=== PATIENT | male | born 1945 | race Caucasian/White ===

== ENCOUNTER → 2018-06-14 | Outpatient (CLI) | payer OTHER, BC ==
[~2018-06-14] MED LIST: ADULT LOW DOSE81 MG PO; ALTACE5 M1 PO; CARVEDILOL25 MG PO; KEFLEX500 MG PO; SIMVASTATIN20 MG PO; SPIRONOLACTONE25 M1 PO
[2018-06-14 14:38] LABS: HEMATOCRIT 31.8 % (42.0-52.0); HEMOGLOBIN 10.8 gm/dL (14.0-18.0); MCH 31.8 pg (26.0-34.0); MCHC 33.9 g/dL (28.0-37.0); MCV 93.6 fL (80.0-100.0); RBC 3.4 mil/uL (4.50-6.00); RDW 14.7 % (10.5-14.5); WBC 4.3 thou/uL (4.0-11.0)
[2018-06-14 14:52] LABS: CALCIUM 8.5 mg/dL (8.5-10.1); CREATININE 2.5 mg/dL (0.7-1.3); POTASSIUM 4.5 mmol/L (3.5-5.1)
[2018-06-14 14:54] LABS: INR 1.3; PROTIME 13.9 Seconds (9.3-11.4)
[2018-06-14 14:58] LABS: ALBUMIN 2.5 g/dL (3.4-5.0); TOTAL BILIRUBIN 1.5 mg/dL (<0.1-1.0); TOTAL PROTEIN 6.4 g/dL (6.4-8.2)
[2018-06-14 16:21] LABS: % SATURATION 43 % (20-39); IRON 83 ug/dL (65-175); TIBC 195 ug/dL (250-450)
[2018-06-15 15:11] LABS: CERULOPLASMIN 23.2 mg/dL (16.0-31.0)
[2018-06-16 02:07] LABS: HAV IgM AB (ANTI-HAV IgM) Negative (Negative); HEPATITIS B SURFACE AG Negative (Negative); HEPATITIS C VIRUS AB 0.1 (0.0-0.9)
[2018-06-17 14:10] LABS: MITOCHONDRIAL ANTIBODY <20.0 Units (0.0-20.0); SMOOTH MUSCLE ANTIBODY 22 Units (0-19)
== END | disposition home or self-care (01) ==
LOC: GI 12:17
PROVIDERS: Anesthesiology; Internal Medicine Gastroenterology
DX: I85.10 Secondary esophageal varices without bleeding (principal); K31.89 Other diseases of stomach and duodenum; K74.60 Unspecified cirrhosis of liver; K76.6 Portal hypertension; I12.9 Hypertensive chronic kidney disease with stage 1 through stage 4 chronic kidney disease, or unspecified chronic kidney disease; E11.22 Type 2 diabetes mellitus with diabetic chronic kidney disease; N18.9 Chronic kidney disease, unspecified; I25.2 Old myocardial infarction; I25.10 Atherosclerotic heart disease of native coronary artery without angina pectoris; E78.5 Hyperlipidemia, unspecified; Z87.891 Personal history of nicotine dependence; E66.09 Other obesity due to excess calories; Z79.01 Long term (current) use of anticoagulants; Z98.890 Other specified postprocedural states; Z95.0 Presence of cardiac pacemaker; Z90.49 Acquired absence of other specified parts of digestive tract; Z79.899 Other long term (current) drug therapy
CPT/HCPCS: 62110; 62900

== ENCOUNTER → 2018-06-17 | Outpatient (CLI) | payer OTHER, BC ==
[2018-06-17 10:55] LABS: CLARITY CLEAR; COLOR YELLOW; SOURCE ABDOMINAL FLUID; TOTAL VOLUME 60 mL
[2018-06-17 11:10] LABS: BF NUCLEATED CELLS 215; BF RBC 243
[2018-06-17 11:50] LABS: BF MACROPHAGE 23; BF NEUTROPHILS 5
[2018-06-18 09:10] LABS: BODY FLUID ALBUMIN 1.1 g/dL (()); BODY FLUID AMYLASE 23 U/L (()); BODY FLUID GLUCOSE 126 mg/dL (()); BODY FLUID LDH 112 IU/L (()); BODY FLUID PROTEIN 2.3 g/dL (())
[2018-06-21 09:28] LABS: SOURCE ABDOMINAL
--- NOTE | 2018-06-22 11:09 | PATH ---
[facility] [address] [place] [address] PATHOLOGY RPT PROCEDURE Name: DESEAN CAMARA JR Room #: [facility].#: [id number] ������������������ Admission: 06/17/18 ������������������ Date of : 41 Discharge: Report #: [id number] Path Case #: [id number] Note [facility] Accession Number: [id number] TESTS RESULT FLAG UNITS REF RANGE LAB Clinician Provided Cytology Information No. of containers..01 Other (Miscellaneous) Source: 01 ABDOMINAL FLUID DIAGNOSIS: 02 ABDOMINAL FLUID NEGATIVE FOR MALIGNANT CELLS. MESOTHELIAL CELLS ARE PRESENT. THIS INTERPRETATION INCLUDES EVALUATION OF A CELL BLOCK. REACTIVE CELLULAR CHANGES ALONG WITH CHRONIC INFLAMMATION. Pathologist ICD10: 02 K74.60 Signed out by: aFiza Bull MD, Pathologist NPI- [id number] Performed by: Mil Padgett, Medical Technical Writer ([facility]) Gross description: 01 15ML, YELLOW, CLOUDY /LCS FLAG LEGEND: L-Low Normal,H-High Normal,LL-Alert Low,HH-Alert High <-Panic Low,>-Panic High,A-Abnormal,AA-Critical Abnormal Performed at: [address] [place] [address] Shimon Madsen MD, [address] [address] Faiza Bull MD, Specimen Comment: A courtesy copy of this report has been sent to Specimen Comment: [phone]. Specimen Comment: Report sent to Specimen Comment: A duplicate report has been generated due to demographic updates. Performed at: [address], [place], [place] [id number] MD Shimon Madsen MD Phone: [phone]
== END | disposition home or self-care (01) ==
LOC: ULTRA 07:19
PROVIDERS: Internal Medicine Gastroenterology
DX: K70.31 Alcoholic cirrhosis of liver with ascites (principal); E11.9 Type 2 diabetes mellitus without complications; I51.9 Heart disease, unspecified; K76.9 Liver disease, unspecified; N28.9 Disorder of kidney and ureter, unspecified; Z79.82 Long term (current) use of aspirin; Z79.899 Other long term (current) drug therapy

== ENCOUNTER 2018-06-18 10:47 | Emergency (ER) | payer OTHER, BC ==
[~2018-06-18] VITALS: Ht 172.7 cm; Wt 76.2 kg
[2018-06-18 11:39] LABS: ABSOLUTE NEUTROPHILS 3.4 thou/uL (1.4-8.2); BASOPHILS 0.8 % (0.0-2.0); EOSINOPHILS 5.7 % (0.0-3.0); HEMATOCRIT 35.6 % (42.0-52.0); LYMPHOCYTES 18.3 % (24.0-44.0); MCH 31.6 pg (26.0-34.0); MCHC 33.7 g/dL (28.0-37.0); MCV 93.6 fL (80.0-100.0); MONOCYTES 6.1 % (1.0-8.0); PLATELET COUNT 105 thou/uL (150-400); POLYS 69.1 % (36.0-66.0)
[2018-06-18 11:53] LABS: ANION GAP 8 mmol/L (7-16); BUN 34 mg/dL (7-18); CALCIUM 8.5 mg/dL (8.5-10.1); CHLORIDE 104 mmol/L (98-107); CO2 23 mmol/L (21-32); CREATININE 2.6 mg/dL (0.7-1.3); GLUCOSE 156 mg/dL (74-106); POTASSIUM 4.4 mmol/L (3.5-5.1); SODIUM 135 mmol/L (136-145)
[2018-06-18 12:01] LABS: ALBUMIN 2.3 g/dL (3.4-5.0); MAGNESIUM 1.7 mg/dL (1.8-2.4); SGOT 28 U/L (15-37); SGPT 14 U/L (30-65); TOTAL BILIRUBIN 1.1 mg/dL (<0.1-1.0); TROPONIN-I <0.06 ng/mL (<0.06)
[2018-06-18 13:43] VITALS: BP 96/49
--- NOTE | 2018-06-20 13:22 | EKG ---
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1945 Requested By: Micheal Reyes Order Number: [id number] MD: Jon Greene Measurements Intervals [place] Rate: 63 P: 1 CT: 142 QRS: 201 QRSD: 131 T: -29 QT: 462 QTc: 474 Interpretive Statements Atrial-sensed ventricular-paced rhythm No further analysis attempted due to paced rhythm Compared to ECG 08/04/2009 07:01:36 Ventricular premature complex(es) no longer present Electronically Signed On 06-20-2018 13:22:00 CDT by Jon Greene [email or web address] ��������������������������������������������� <ELECTRONICALLY SIGNED> ���������������������������������������� By: Jon Greene MD, [facility] ��������������������������������������������� 06/20/18 1322 1126 112 Jon Greene MD, [facility] /EPI
== END 2018-06-18 13:51 | disposition home or self-care (01) ==
LOC: ER 10:47
PROVIDERS: Emergency Medicine
DX: R18.8 Other ascites (principal); I85.00 Esophageal varices without bleeding; I12.9 Hypertensive chronic kidney disease with stage 1 through stage 4 chronic kidney disease, or unspecified chronic kidney disease; I95.1 Orthostatic hypotension; E86.9 Volume depletion, unspecified; E78.00 Pure hypercholesterolemia, unspecified; Z90.49 Acquired absence of other specified parts of digestive tract; Z95.5 Presence of coronary angioplasty implant and graft

== ENCOUNTER 2018-06-18 22:46 | Emergency (ER) | payer OTHER, BC ==
[~2018-06-18] VITALS: Ht 182.9 cm; Wt 94.3 kg
[2018-06-18 23:39] LABS: ABSOLUTE NEUTROPHILS 3.2 thou/uL (1.4-8.2); BASOPHILS 1.1 % (0.0-2.0); EOSINOPHILS 7.7 % (0.0-3.0); HEMATOCRIT 30.6 % (42.0-52.0); HEMOGLOBIN 10.5 gm/dL (14.0-18.0); LYMPHOCYTES 20.4 % (24.0-44.0); MCHC 34.4 g/dL (28.0-37.0); MONOCYTES 7.3 % (1.0-8.0); PLATELET COUNT 109 thou/uL (150-400); POLYS 63.5 % (36.0-66.0); RBC 3.28 mil/uL (4.50-6.00); RDW 14.9 % (10.5-14.5)
[2018-06-18 23:45] LABS: CALCIUM 8.3 mg/dL (8.5-10.1); CREATININE 2.6 mg/dL (0.7-1.3); POTASSIUM 4.2 mmol/L (3.5-5.1)
[2018-06-18 23:51] LABS: ALBUMIN 2.9 g/dL (3.4-5.0); TOTAL BILIRUBIN 0.9 mg/dL (<0.1-1.0); TOTAL PROTEIN 5.9 g/dL (6.4-8.2)
[2018-06-19 00:50] VITALS: BP 90/34
== END 2018-06-19 00:52 | disposition home or self-care (01) ==
LOC: ER 22:46
PROVIDERS: Emergency Medicine
DX: I95.9 Hypotension, unspecified (principal); E78.00 Pure hypercholesterolemia, unspecified; Z95.5 Presence of coronary angioplasty implant and graft; Z90.49 Acquired absence of other specified parts of digestive tract

== ENCOUNTER → 2018-07-08 | Outpatient (CLI) | payer OTHER, BC | END | disposition home or self-care (01) | LOC: ULTRA 12:57 | DX: R18.8 Other ascites (principal); Z79.82 Long term (current) use of aspirin; Z79.899 Other long term (current) drug therapy ==

== ENCOUNTER → 2018-07-28 | Outpatient (CLI) | payer OTHER, BC ==
--- NOTE | 2018-07-28 10:10 | NUR ---
Utilizing sterile technique iv initiation using a 22G catheter to the left AC. Normal saline flush of 5 ml without issue. Patent.
[2018-07-28 10:12] LABS: HEMATOCRIT 35.9 % (42.0-52.0); HEMOGLOBIN 12.3 gm/dL (14.0-18.0); MCH 32.2 pg (26.0-34.0); MCHC 34.1 g/dL (28.0-37.0); MCV 94.5 fL (80.0-100.0); RBC 3.8 mil/uL (4.50-6.00); RDW 15.8 % (10.5-14.5); WBC 7.1 thou/uL (4.0-11.0)
[2018-07-28 10:21] LABS: INR 1.2; PROTIME 12.7 Seconds (9.3-11.4)
[2018-07-28 10:22] LABS: CALCIUM 9.5 mg/dL (8.5-10.1); CREATININE 2.8 mg/dL (0.7-1.3); POTASSIUM 4.6 mmol/L (3.5-5.1)
[2018-07-28 13:50] VITALS: BP 114/62
[2018-07-28 14:06] VITALS: BP 107/60
[2018-07-28 14:20] VITALS: BP 99/53
[2018-07-28 14:38] VITALS: BP 99/58
[2018-07-28 14:50] VITALS: BP 105/54
[2018-07-28 15:25] VITALS: BP 98/55
== END | disposition home or self-care (01) ==
LOC: ULTRA 09:25
PROVIDERS: Internal Medicine Gastroenterology
DX: R18.8 Other ascites (principal); E78.00 Pure hypercholesterolemia, unspecified; I25.2 Old myocardial infarction; Z79.899 Other long term (current) drug therapy; Z79.82 Long term (current) use of aspirin; Z90.49 Acquired absence of other specified parts of digestive tract; Z95.810 Presence of automatic (implantable) cardiac defibrillator; Z95.5 Presence of coronary angioplasty implant and graft; Z98.890 Other specified postprocedural states

== ENCOUNTER → 2018-08-12 | Outpatient (CLI) | payer OTHER, BC ==
[2018-08-12] VITALS (7 sets, daily range): BP systolic 90–112; BP diastolic 46–61
[~2018-08-12] MED LIST changes: +FUROSEMIDE 40 M40 M1 PO; +IRON325 PO
[2018-08-12 09:18] LABS: HEMATOCRIT 36.2 % (42.0-52.0); HEMOGLOBIN 12.3 gm/dL (14.0-18.0); MCH 32.3 pg (26.0-34.0); MCHC 33.8 g/dL (28.0-37.0); MCV 95.4 fL (80.0-100.0); RBC 3.8 mil/uL (4.50-6.00); RDW 15.3 % (10.5-14.5); WBC 6.7 thou/uL (4.0-11.0)
[2018-08-12 09:45] LABS: INR 1.2; PROTIME 12.1 Seconds (9.3-11.4)
[2018-08-12 10:00] LABS: CALCIUM 9.6 mg/dL (8.5-10.1); CREATININE 2.7 mg/dL (0.7-1.3); POTASSIUM 4.6 mmol/L (3.5-5.1)
--- NOTE | 2018-08-12 14:10 | NUR ---
PT HERE FOR PARACENTESIS FOLLOWED BY ALBUMIN. DOSE OF ALBUMIN TO BE DETERMINED BASED ON AMT OF ABD FLUID REMOVED. DR. BELTRAN AND GREEN MEAT PACKERRADHA, PERFORMED PARACENTESIS WITH 15 LITERS REMOVED. PT RECEIVED 100GM 25% ALBUMIN, TOTAL OF 4 BOTTLES RUN CONSEQUTIVELY OVER TOTAL TIME OF 1 HOUR 32 MINUTES (20 MIN/BOTTLE) PER ORDER. TOLERATED WELL. VSS. REPORTS FEELING MUCH BETTER DURING AND POST PROCEDURE. PT WORKED WITH RADIOLOGY AND JUVENILE COURT JUDGE TO PLAN FOR NEXT VISIT, TENTATIVELY 09/03. THIS IS NOT ANTICIPATED TO BE SCHEDULED IN THE INFUSION CLINIC IN THE FUTURE. PT DISMISSED IN STABLE CONDITION WITH FAMILY. R SIDED ABD DRESSING D/I AND PT WAS INSTRUCTED TO LEAVE THIS ON FOR 24 HOURS. PT VERBALIZED UNDERSTANDING.
== END | disposition home or self-care (01) ==
LOC: ULTRA 08:43
PROVIDERS: Internal Medicine Gastroenterology
DX: R18.8 Other ascites (principal); K74.60 Unspecified cirrhosis of liver; I25.2 Old myocardial infarction; E78.00 Pure hypercholesterolemia, unspecified; Z90.49 Acquired absence of other specified parts of digestive tract; Z95.810 Presence of automatic (implantable) cardiac defibrillator; Z98.890 Other specified postprocedural states; Z79.899 Other long term (current) drug therapy; Z79.82 Long term (current) use of aspirin
CPT/HCPCS: 95000; 95001

== ENCOUNTER → 2018-08-17 | Outpatient (CLI) | payer OTHER, BC | LOC: CAT 09:52 | DX: M47.816 Spondylosis without myelopathy or radiculopathy, lumbar region (principal); G31.9 Degenerative disease of nervous system, unspecified; M51.27 Other intervertebral disc displacement, lumbosacral region; M25.78 Osteophyte, vertebrae; M48.07 Spinal stenosis, lumbosacral region; I70.0 Atherosclerosis of aorta; M12.88 Other specific arthropathies, not elsewhere classified, other specified site; R16.1 Splenomegaly, not elsewhere classified; M21.371 Foot drop, right foot; R26.0 Ataxic gait ==

== ENCOUNTER → 2018-08-25 | Outpatient (CLI) | payer OTHER, BC ==
[2018-08-25 10:25] VITALS: BP 91/49
[2018-08-25 11:53] VITALS: BP 96/49
--- NOTE | 2018-08-25 12:05 | NUR ---
HERE FOR REPEAT PARACENTESIS WITH ULTRASOUND THEN ALBUMIN REPLACEMENT WITH THE INFUSION CLINIC. NOVELTY DIPPER REMAINED WITH PT IN THE INFUSION CLINIC DURING ENTIRE PROCEDURE AFTER DR. BELTRAN PLACED CATHETER. GOOD DRAINAGE NOTED (PLEASE REFER TO THEIR NOTES) IN EXCESS OF 13 LITERS. PT QUALIFIED FOR 100 GMS ALBUMIN WHICH INFUSED 20 MIN PER BOTTLE X 4 ORDERED. PT TOLERATED ALL VERY WELL. DENIED ANY FEELINGS OF DIZZINESS, PAIN OR OTHER CONCERNS POST PROCEDURE. R SIDED ABD DRSG D/I UPON DISCHARGE. PT SET UP TO RETURN AGAIN ON 09/03. PT, , DTR ALL VERBALIZE UNDERSTANDING OF PLAN.
== END ==
LOC: ULTRA 07:59
DX: R18.8 Other ascites (principal); R14.0 Abdominal distension (gaseous); Z79.82 Long term (current) use of aspirin; Z79.899 Other long term (current) drug therapy; Z98.890 Other specified postprocedural states
CPT/HCPCS: 95000

== ENCOUNTER → 2018-09-03 | Outpatient (CLI) | payer OTHER, BC ==
[~2018-09-03] MED LIST changes: +MAGOX 400400 MG PO; +ZOCOR20 MG PO
[2018-09-03 09:10] VITALS: BP 104/64
[2018-09-03 11:05] VITALS: BP 90/42
--- NOTE | 2018-09-03 11:40 | NUR ---
HERE FOR REPEAT PARACENTESIS AND ALBUMIN IV. ULTRASOUND PERFORMED THE PARACENTESIS REMOVING 11+ LITERS. PROCEDURE DONE IN THE INFUSION CLINIC AND ALBUMIN REPLACEMENT THERAPY INITIATED WHILE PARACENTESIS BEING DONE. PT TOLERATED PROCEDURE WITHOUT INCIDENT. REPORTS FEELING WELL POST. DRESSING R SIDE OF ABD D/I UPON DISMISSAL. PT WILL RETURN TO ENDOSCOPY THURSDAY FOR UGI PROCEDURE. DISMISSED IN STABLE CONDITION.
== END | disposition home or self-care (01) ==
LOC: ULTRA 08:04
DX: R18.8 Other ascites (principal); R14.0 Abdominal distension (gaseous); Z79.82 Long term (current) use of aspirin; Z79.899 Other long term (current) drug therapy
CPT/HCPCS: 95000

== ENCOUNTER → 2018-09-06 | Outpatient (CLI) | payer OTHER, BC ==
[~2018-09-06] VITALS: Ht 180.3 cm; Wt 86.2 kg
== END | disposition home or self-care (01) ==
LOC: GI 08:47
DX: K31.89 Other diseases of stomach and duodenum (principal); K76.6 Portal hypertension; I85.00 Esophageal varices without bleeding; E78.00 Pure hypercholesterolemia, unspecified; I25.2 Old myocardial infarction; Z98.890 Other specified postprocedural states; Z90.49 Acquired absence of other specified parts of digestive tract; Z79.899 Other long term (current) drug therapy
CPT/HCPCS: 62110; 62900

== ENCOUNTER → 2018-09-15 | Outpatient (CLI) | payer OTHER, BC ==
[2018-09-15 09:20] VITALS: BP 117/76
[2018-09-15 11:25] VITALS: BP 91/51
--- NOTE | 2018-09-15 11:40 | NUR ---
HERE FOR REPEAT PARACENTESIS FOR ASCITES AND ALBUMIN REPLACEMENT. ULTRASOUND MANAGED PARACENTESIS WITH JUST OVER 15 LITERS REMOVED. 100GM IV ALBUMIN GIVEN OVER 1H 30 MIN. VSS POST. PT REPORTS SUCH RELIEF AFTER THE PROCEDURE. TOLERATED WELL WITH NO S/S ADVERSE REACTION. PT'S DTR, JD, WILL CALL WHEN HE IS NEEDING TO RETURN. DRESSING R SIDE D/I POST. DISMISSED WITH FAMILY IN STABLE CONDITION.
== END | disposition home or self-care (01) ==
LOC: ULTRA 00:19 → OPONC 13:36
DX: R18.8 Other ascites (principal); R14.0 Abdominal distension (gaseous); I25.2 Old myocardial infarction; E78.00 Pure hypercholesterolemia, unspecified; Z79.899 Other long term (current) drug therapy; Z79.82 Long term (current) use of aspirin; Z90.49 Acquired absence of other specified parts of digestive tract; Z95.0 Presence of cardiac pacemaker
CPT/HCPCS: 95000

== ENCOUNTER → 2018-09-28 | Outpatient (CLI) | payer OTHER, BC ==
[2018-09-28 09:43] VITALS: BP 100/76
--- NOTE | 2018-09-28 14:57 | NUR ---
PATIENT HERE FOR PARACENTESIS AND ALBUMIN INFUSION. PARACENTESIS DONE BY US STAFF, DR. DENISE PLACED PARACENTESIS CATHETER. REMOVED 14 1/2 LITERS OF YELLOW ASCITIC FLUID. PATIENT TOLERATED PROCEDURE WELL. ALBUMIN INFUSION GIVEN PER STANDING ORDER. RECEIVED 100 GM AND TOLERATED WELL. DENIED DIZZINESS. SPOUSE AND DTR AT BEDSIDE. BANDAID PLACED ON RIGHT UPPER ABD. NO DRAINAGE NOTED. PATIENT SCHEDULED TO RETURN NEXT THURSDAY FOR THE SAME. DISMISSED IN STABLE CONDITION.
== END ==
LOC: OPONC 08:58
DX: R18.8 Other ascites (principal); K74.60 Unspecified cirrhosis of liver
CPT/HCPCS: 95000

== ENCOUNTER → 2018-10-15 | Outpatient (CLI) | payer OTHER, BC ==
[2018-10-15 15:30] VITALS: BP 100/56
--- NOTE | 2018-10-15 15:30 | NUR ---
HERE FOR REPEAT OF ALBUMIN GIVEN WITH LARGE VOLUME PARACENTESIS. PT REPORTS DOING WELL AND TOLERATING THE PROCEDURE; FEELS MUCH BETTER WHEN INTERVAL IS SHORTER BETWEEN PROCEDURES. 8.5 LITERS REMOVED BY ULTRASOUND STAFF SO 75GM ALBUMIN ADMINISTERED TODAY. PT TOLERATED WITHOUT INCIDENT. R SIDED ABD DSG D/I UPON DISMISSAL. VSS. DISMISSED IN STABLE CONDITION. DTR WILL CALL NEXT WEEK TO SET UP TIME FOR RETURN VISIT.
== END ==
LOC: ULTRA 00:38 → OPONC 00:38
DX: R18.8 Other ascites (principal)
CPT/HCPCS: 95000

== ENCOUNTER → 2018-10-22 | Outpatient (CLI) | payer OTHER, BC ==
[2018-10-22 10:34] VITALS: BP 131/62
--- NOTE | 2018-10-22 11:23 | NUR ---
IN FOR PARACENTESIS FOR RECURRENT ASCITES/CIRRHOSIS AND ALBUMIN INFUSION. 9 LITERS REMOVED. 75 GM ALBUMIN GIVEN IV OVER 20 MIN. PER BOTTLE. TOLERATED WELL. REMOVED IV AND DISMISSED IN STABLE CONDITION.
== END | disposition home or self-care (01) ==
LOC: ULTRA 08:24 → OPONC 15:40 → ULTRA 15:42
DX: R18.8 Other ascites (principal); K74.60 Unspecified cirrhosis of liver; Z79.82 Long term (current) use of aspirin; Z79.899 Other long term (current) drug therapy; Z98.890 Other specified postprocedural states
CPT/HCPCS: 95000

== ENCOUNTER → 2018-10-29 | Outpatient (CLI) | payer OTHER, BC ==
[2018-10-29 10:40] VITALS: BP 114/72
--- NOTE | 2018-10-29 12:14 | NUR ---
IN FOR PARACENTESIS FOR LARGE VOLUME ASCITES/CIRRHOSIS. PATIENT STATED FEELING OK. PATIENT LOOKS CHRONICALLY ILL. ABD FIRM AND DISTENDED. PARACENTESIS DONE AND REMOVED 9.2 LITERS. 75 GM ALBUMIN GIVEN IV PER STANDING ORDER AND TOLERATED WELL. REMOVED IV AND DISMISSED VIA WC IN STABLE CONDITION.
== END ==
LOC: ULTRA 02:09 → OPONC 02:09
DX: K74.60 Unspecified cirrhosis of liver (principal); R18.8 Other ascites
CPT/HCPCS: 95000

== ENCOUNTER 2018-11-05 08:46 | Emergency (ER) | payer OTHER, BC ==
[~2018-11-05] VITALS: Ht 180.3 cm; Wt 90.7 kg
[~2018-11-05 08:46] MED LIST changes: -VELTASSA8.4 GM PO
[2018-11-05 08:47] VITALS: BP 107/67
[2018-11-05 09:19] LABS: ABSOLUTE NEUTROPHILS 8.3 thou/uL (1.4-8.2); BASOPHILS 0.7 % (0.0-2.0); EOSINOPHILS 3.9 % (0.0-3.0); HEMATOCRIT 35.5 % (42.0-52.0); HEMOGLOBIN 12.2 gm/dL (14.0-18.0); MCHC 34.4 g/dL (28.0-37.0); MONOCYTES 7.9 % (1.0-8.0); PLATELET COUNT 139 thou/uL (150-400); POLYS 78.5 % (36.0-66.0); RBC 3.69 mil/uL (4.50-6.00); RDW 14.9 % (10.5-14.5); WBC 10.6 thou/uL (4.0-11.0)
[2018-11-05 09:37] LABS: ALBUMIN 3.7 g/dL (3.4-5.0); CALCIUM 9.7 mg/dL (8.5-10.1); CREATININE 2.9 mg/dL (0.7-1.3); DIRECT BILIRUBIN 0.5 mg/dL (<0.1-0.3); TOTAL BILIRUBIN 1.9 mg/dL (<0.1-1.0); TOTAL PROTEIN 6.9 g/dL (6.4-8.2)
[2018-11-05 09:45] LABS: POTASSIUM 6.5 mmol/L (3.5-5.1)
[2018-11-05 09:49] LABS: APTT 31.3 Seconds (24.5-32.8); INR 1.2; PROTIME 12.7 Seconds (9.3-11.4)
[2018-11-05 10:50] VITALS: BP 113/73
[2018-11-05] MEDS ORDERED: VELTASSA8.4 GM PO (11:03)
[2018-11-05 11:06] VITALS: BP 113/44
[2018-11-05 11:51] VITALS: BP 101/70
--- NOTE | 2018-11-05 14:29 | EKG ---
[address] [place] [address] ELECTROCARDIOGRAM REPORT Name: DESEAN CAMARA Room #: 170-10 ADM IN M.R.#: [id number] Admission: 11/05/18 Attend Phys: Stefan Winter MD Discharge: Date of : 41 Report #: [id number] THIS REPORT FOR: //name// 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: SHIMA : 1945 Requested By: Debbie Sharma Order Number: [id number] MD: Jon Greene Measurements Intervals [place] Rate: 88 P: 5 [place]: 140 QRS: 214 QRSD: 142 T: -16 QT: 400 QTc: 484 Interpretive Statements Atrial-sensed ventricular-paced rhythm No further analysis attempted due to paced rhythm Compared to ECG 06/18/2018 11:26:32 No significant changes Electronically Signed On 11-05-2018 14:29:16 CDT by Jon Greene [email or web address] <ELECTRONICALLY SIGNED> By: Jon Greene MD, [facility] 11/05/18 1429 [id number] [id number] Jon Greene MD, [facility] /EPI
== END 2018-11-05 11:53 | disposition home or self-care (01) ==
LOC: ER 08:46 → EROBS 10:47 → ER 10:47 → EROBS 11:53
PROVIDERS: Emergency Medicine
DX: E87.5 Hyperkalemia (principal); E78.00 Pure hypercholesterolemia, unspecified; Z90.49 Acquired absence of other specified parts of digestive tract; Z95.0 Presence of cardiac pacemaker

== ENCOUNTER → 2018-11-05 | Outpatient (CLI) | payer OTHER, BC ==
[~2018-11-05] MED LIST changes: +VELTASSA8.4 GM PO
[2018-11-05 08:08] LABS: HEMATOCRIT 33.9 % (42.0-52.0); HEMOGLOBIN 11.7 gm/dL (14.0-18.0); MCH 33.1 pg (26.0-34.0); MCHC 34.6 g/dL (28.0-37.0); MCV 95.7 fL (80.0-100.0); RBC 3.54 mil/uL (4.50-6.00); RDW 14.8 % (10.5-14.5); WBC 10.1 thou/uL (4.0-11.0)
[2018-11-05 08:15] LABS: CALCIUM 9.8 mg/dL (8.5-10.1)
[2018-11-05 08:18] LABS: POTASSIUM 6.9 mmol/L (3.5-5.1)
[2018-11-05 08:19] LABS: INR 1.1; PROTIME 11.9 Seconds (9.3-11.4)
== END | disposition home or self-care (01) ==
LOC: LABMALL 07:31 → ULTRA 07:31
PROVIDERS: Internal Medicine Gastroenterology
DX: R18.8 Other ascites (principal); E78.00 Pure hypercholesterolemia, unspecified; I25.2 Old myocardial infarction; N18.9 Chronic kidney disease, unspecified; Z79.82 Long term (current) use of aspirin; Z79.899 Other long term (current) drug therapy; Z98.890 Other specified postprocedural states; Z95.0 Presence of cardiac pacemaker

== ENCOUNTER → 2018-11-05 | Outpatient (CLI) | payer OTHER, BC ==
[2018-11-05 12:09] VITALS: BP 108/59
--- NOTE | 2018-11-05 13:52 | NUR ---
IN FOR PARACENTESIS AND ALBUMIN REPLACEMENT POST PARACENTESIS. PATIENT WENT TO ED THIS AM AFTER LABS DRAWN FOR POTASSIUM LEVEL 6.9. AFTER DISMISSED FROM ED CAME TO OPINF FOR PARACENTESIS AND ALBUMIN. 7 LITERS ASCITIC FLUID REMOVED BY US TECH. 50 GM ALBUMIN GIVEN IV OVER 40 MINUTES AND TOLERATED WELL. HR REGULAR AND AT TIMES TACHY. DENIED CHEST PAIN. TO RETURN NEXT THURSDAY FOR REPEAT PARACENTESIS. DISMISSED IN STABLE CONDITION.
== END ==
LOC: OPONC 00:19
DX: K74.60 Unspecified cirrhosis of liver (principal); R18.8 Other ascites
CPT/HCPCS: 95000

== ENCOUNTER → 2018-11-12 | Outpatient (CLI) | payer OTHER, BC ==
[~2018-11-12] MED LIST changes: +VELTASSA8.4 GM PO
[2018-11-12 10:06] VITALS: BP 114/64
--- NOTE | 2018-11-12 10:15 | NUR ---
IN FOR LARGE VOLUME PARACENTESIS/ASCITES/CIRRHOSIS FOR ALBUMIN REPLACEMENT POST PARACENTESIS. STATED FEELING OK AND THAT HE IS STILL KICKING. VITAL SIGNS GOOD. REMOVED 8.7 LITERS ASCITIC FLUID. TOLERATED WELL. 75 GM ALBUMIN GIVEN. SCHEDULED TO RETURN NEXT THURSDAY FOR THE SAME. DISMISSED IN STABLE CONDITION.
== END | disposition home or self-care (01) ==
LOC: ULTRA 08:35
DX: R18.8 Other ascites (principal); R14.0 Abdominal distension (gaseous); N18.9 Chronic kidney disease, unspecified; Z79.82 Long term (current) use of aspirin; Z79.899 Other long term (current) drug therapy; Z87.19 Personal history of other diseases of the digestive system; Z98.890 Other specified postprocedural states
CPT/HCPCS: 95000

== ENCOUNTER → 2018-11-19 | Outpatient (CLI) | payer OTHER, BC ==
[2018-11-19 09:01] LABS: HEMATOCRIT 34.3 % (42.0-52.0); HEMOGLOBIN 11.8 gm/dL (14.0-18.0); MCH 32.7 pg (26.0-34.0); MCHC 34.5 g/dL (28.0-37.0); MCV 94.8 fL (80.0-100.0); RBC 3.62 mil/uL (4.50-6.00); RDW 14.8 % (10.5-14.5)
[2018-11-19 09:09] LABS: CALCIUM 9.9 mg/dL (8.5-10.1); CREATININE 3.4 mg/dL (0.7-1.3); MAGNESIUM 1.9 mg/dL (1.8-2.4); POTASSIUM 4.9 mmol/L (3.5-5.1)
[2018-11-19 09:13] LABS: INR 1.2; PROTIME 12.2 Seconds (9.3-11.4)
[2018-11-19 09:18] VITALS: BP 108/69
--- NOTE | 2018-11-19 11:13 | NUR ---
IN FOR WEEKLY LARGE VOLUME PARACENTESIS WITH ALBUMIN REPLACEMENT. US TECH REMOVED 7.9 LITERS ASCITIC FLUID. PATIENT TOLERATED WELL. REPLACED WITH 50 GM ALBUMIN IV PER STANDING ORDER. TOLERATED ALL WELL. TO RETURN NEXT THURSDAY FOR THE SAME. DISMISSED IN STABLE CONDITION.
== END | disposition home or self-care (01) ==
LOC: ULTRA 08:19
PROVIDERS: Internal Medicine Gastroenterology
DX: R18.8 Other ascites (principal); K74.60 Unspecified cirrhosis of liver; N18.9 Chronic kidney disease, unspecified; E78.00 Pure hypercholesterolemia, unspecified; I25.2 Old myocardial infarction; Z79.82 Long term (current) use of aspirin; Z79.899 Other long term (current) drug therapy; Z98.890 Other specified postprocedural states; Z98.0 Intestinal bypass and anastomosis status; Z90.49 Acquired absence of other specified parts of digestive tract
CPT/HCPCS: 95000

== ENCOUNTER → 2018-11-26 | Outpatient (CLI) | payer OTHER, BC ==
[2018-11-26 10:21] LABS: CALCIUM 9.7 mg/dL (8.5-10.1); CREATININE 3.6 mg/dL (0.7-1.3); MAGNESIUM 1.7 mg/dL (1.8-2.4); POTASSIUM 4.4 mmol/L (3.5-5.1)
[2018-11-26 10:30] VITALS: BP 114/54
--- NOTE | 2018-11-26 12:00 | NUR ---
HERE FOR WEEKLY PARACENTESIS FOLLOWED BY ALUBMIN. 7.1 LITERS REMOVED TODAY SO 50GM ALBUMIN GIVEN. LABS WERE DRAWN PRE-PROCEDURE IN OP LAB, ORDERED BY PT'S SUPERVISOR DRAPERY HANGING, DR. SALAZAR. RESULTS NOTED AND REPORTED TO DR. CASTILLO--FAXED AND SPOKE WITH NURSE, EDMUNDO, TO POINT OUT INCREASING BUN/CR, DECREASING NA. ALSO FAXED LABS PER PT REQUEST TO DR. STALEY WHO HE IS TRYING TO SWITCH TO FOR NEPHROLOGY CARE. PT, DTR AND ALL NOTIFIED OF ABNORMAL LABS AND WILL F/U. PT REPORTS NOT TAKING HIS MAGNESIUM TABLET. ENCOURAGED TO DO SO. DENIES INCREASING WEAKNESS, FATIGUE OR ANY COGNITIVE CHANGES. DOES SAY HE HAS OCCASIONAL DARK COLORED URINE. STATE PT DOESN'T DRINK MUCH FLUID. PT ON 2ND BOTTLE OF ALBUMIN NOW. EDMUNDO, DR. CASTILLO' NURSE, STATES SHE WILL F/U REGARDING ABNROMAL LABS. RADIOLOGY WILL SCHEDULE PT TO RETURN AGAIN NEXT WEEK ON THURSDAY.
[2018-11-26 12:18] VITALS: BP 105/42
--- NOTE | 2018-11-26 12:32 | NUR ---
COMPLETED TREATMENT WITHOUT INCIDENT. VSS POST. DISMISSED IN STABLE CONDITION.
--- NOTE | 2018-11-26 14:00 | NUR ---
RETURN CALL RECEIVED FROM ELSI WYATT WITH DR. CASTILLO. SHE STATES DR. CASTILLO WOULD LIKE FOR PT TO DELAY PARACENTESIS LONG POSSIBLE AND DEFINITELY NOT WEEKLY. SHE WILL CALL THE PT'S DTR, JD, TO LET HER KNOW. I NOTIFIED RADIOLOGY/ULTRASOUND. I ALSO FAXED ABNORMAL LABS TO DR. SALAZAR, VEGETABLE FARM WORKER, AT [phone].
== END ==
LOC: OPONC 06:40
PROVIDERS: Internal Medicine Gastroenterology
DX: K74.60 Unspecified cirrhosis of liver (principal); R18.8 Other ascites; N18.4 Chronic kidney disease, stage 4 (severe)
CPT/HCPCS: 95000

== ENCOUNTER 2018-12-07 15:51 | Emergency (ER) | payer OTHER, BC ==
[~2018-12-07] VITALS: Ht 182.9 cm; Wt 77.1 kg
[2018-12-07 16:56] LABS: HEMATOCRIT 31.9 % (42.0-52.0); HEMOGLOBIN 11.1 gm/dL (14.0-18.0); MCH 32.3 pg (26.0-34.0); MCHC 34.8 g/dL (28.0-37.0); MCV 92.9 fL (80.0-100.0); RBC 3.43 mil/uL (4.50-6.00); RDW 14.4 % (10.5-14.5); WBC 7.9 thou/uL (4.0-11.0)
[2018-12-07 17:03] LABS: CALCIUM 8.9 mg/dL (8.5-10.1); CREATININE 3.3 mg/dL (0.7-1.3); POTASSIUM 3.6 mmol/L (3.5-5.1)
[2018-12-07 17:07] LABS: ALBUMIN 2.8 g/dL (3.4-5.0); TOTAL PROTEIN 6.1 g/dL (6.4-8.2)
[2018-12-07 17:12] LABS: APTT 34.1 Seconds (24.5-32.8); INR 1.2; PROTIME 12.7 Seconds (9.3-11.4)
[2018-12-07 17:54] VITALS: BP 118/67
--- NOTE | 2018-12-08 08:01 | EKG ---
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1945 Requested By: Darin Siddiqi Order Number: [id number] MD: Jon Greene Measurements Intervals [place] Rate: 73 P: 90 AL: 140 QRS: 217 QRSD: 143 T: -19 QT: 427 QTc: 471 Interpretive Statements Atrial-sensed ventricular-paced rhythm No further analysis attempted due to paced rhythm Compared to ECG 11/05/2018 09:54:29 No significant changes Electronically Signed On 12-08-2018 8:01:34 CDT by Jon Greene [email or web address] <ELECTRONICALLY SIGNED> By: Jon Greene MD, [facility] 12/08/18 0801 11 11 Jon Greene MD, [facility] /EPI
== END 2018-12-07 17:50 | disposition home or self-care (01) ==
LOC: ER 15:51
PROVIDERS: Emergency Medicine
DX: I95.9 Hypotension, unspecified (principal); I25.2 Old myocardial infarction; I50.9 Heart failure, unspecified; K74.60 Unspecified cirrhosis of liver; E78.00 Pure hypercholesterolemia, unspecified; Z95.0 Presence of cardiac pacemaker; Z95.2 Presence of prosthetic heart valve; Z98.890 Other specified postprocedural states; Z90.49 Acquired absence of other specified parts of digestive tract

== ENCOUNTER → 2018-12-07 | Outpatient (CLI) | payer OTHER, BC ==
[2018-12-07 09:57] LABS: WBC 8.3 thou/uL (4.0-11.0)
[2018-12-07 09:59] LABS: HEMATOCRIT 33.5 % (42.0-52.0); HEMOGLOBIN 11.5 gm/dL (14.0-18.0); MCH 32.1 pg (26.0-34.0); MCHC 34.2 g/dL (28.0-37.0); MCV 93.8 fL (80.0-100.0); RBC 3.57 mil/uL (4.50-6.00)
[2018-12-07 10:04] LABS: CALCIUM 9.3 mg/dL (8.5-10.1); CREATININE 3.3 mg/dL (0.7-1.3); MAGNESIUM 1.9 mg/dL (1.8-2.4); POTASSIUM 3.2 mmol/L (3.5-5.1)
[2018-12-07 10:08] LABS: INR 1.2; PROTIME 12.7 Seconds (9.3-11.4)
[2018-12-07 10:48] VITALS: BP 108/62
--- NOTE | 2018-12-07 13:03 | NUR ---
IN FOR PARACENTESIS FOR CIRRHOSIS. PARACENTESIS DONE BY [employer] TECH RADHA. REMOVED 5 LITERS. PER STANDING ORDER DOES NOT RECEIVE ALBUMIN UNLESS 6 L OR MORE REMOVED. NO ALBUMIN GIVEN. TO RETURN IN 2 WEEKS IF NEEDED. PATIENT APPEARS WEAKER TODAY AND DTR JD STATED HE FELL 3 TIMES LAST WEEK. NO INJURY NOTED. DISMISSED IN STABLE CONDITION.
== END ==
LOC: OPONC 01:53
PROVIDERS: Internal Medicine Gastroenterology
DX: K74.60 Unspecified cirrhosis of liver (principal); R18.8 Other ascites
CPT/HCPCS: 91016

== ENCOUNTER → 2018-12-21 | Outpatient (CLI) | payer OTHER, BC ==
[2018-12-21 10:24] LABS: HEMATOCRIT 34.6 % (42.0-52.0); HEMOGLOBIN 11.6 gm/dL (14.0-18.0); MCH 32.2 pg (26.0-34.0); MCHC 33.4 g/dL (28.0-37.0); MCV 96.3 fL (80.0-100.0); RBC 3.6 mil/uL (4.50-6.00); RDW 15.8 % (10.5-14.5); WBC 8.3 thou/uL (4.0-11.0)
[2018-12-21 10:37] LABS: CALCIUM 9.7 mg/dL (8.5-10.1); CREATININE 3.9 mg/dL (0.7-1.3); INR 1.2; POTASSIUM 5.4 mmol/L (3.5-5.1); PROTIME 12.7 Seconds (9.3-11.4)
[2018-12-21 11:25] VITALS: BP 103/62
--- NOTE | 2018-12-21 15:27 | NUR ---
IN FOR ALBUMIN INFUSION POST LARGE VOLUME PARACENTESIS. PATIENT STATED FEELING PRETTY GOOD. PAIENT ALERT AND ORIENTED X 4 AND IN GOOD SPIRITS. PARACENTESIS DONE PER RADHA, REMOVED 11.2 LITERS. PER STANDING ORDER 100 MG ALBUMIN GIVEN IV. TOLERATED WELL. PLAN IS TO RETURN IN 2 WEEKS FOR NEXT PARACENTESIS IF NEEDED. DISMISSED IN STABLE CONDITION.
== END ==
LOC: OPONC 08:26
PROVIDERS: Internal Medicine Gastroenterology
DX: K74.60 Unspecified cirrhosis of liver (principal); R18.8 Other ascites
CPT/HCPCS: 95000; 95001

== ENCOUNTER → 2019-01-03 | Outpatient (CLI) | payer OTHER, BC ==
[2019-01-03 14:04] LABS: HEMATOCRIT 32.3 % (42.0-52.0); HEMOGLOBIN 10.7 gm/dL (14.0-18.0); MCH 32.3 pg (26.0-34.0); MCHC 33.2 g/dL (28.0-37.0); MCV 97.2 fL (80.0-100.0); RBC 3.33 mil/uL (4.50-6.00); RDW 15.8 % (10.5-14.5); WBC 7.2 thou/uL (4.0-11.0)
[2019-01-03 14:11] LABS: CALCIUM 9.2 mg/dL (8.5-10.1); CREATININE 4.5 mg/dL (0.7-1.3); POTASSIUM 4.1 mmol/L (3.5-5.1)
[2019-01-03 14:17] LABS: INR 1.2; PROTIME 12.2 Seconds (9.3-11.4)
[2019-01-03 14:20] VITALS: BP 116/68
--- NOTE | 2019-01-03 18:58 | NUR ---
IN FOR ALBUMIN REPLACEMENT POST PARACENTESIS. US TECH REMOVED 11.7 LITERS ASCITIC FLUID. ALBUMIN 100 GM IV GIVEN, EACH 25GM OVER 20 MINUTES AND TOLERATED WELL WITHOUT INCIDENT. REMOVED IV AND DISMISSED IN STABLE CONDITION.
== END | disposition home or self-care (01) ==
LOC: ULTRA 13:26
PROVIDERS: Internal Medicine Gastroenterology
DX: R18.8 Other ascites (principal)
CPT/HCPCS: 95000

== ENCOUNTER → 2019-01-14 | Outpatient (CLI) | payer OTHER, BC ==
[~2019-01-14] VITALS: Ht 180.3 cm; Wt 79.0 kg
[2019-01-14 09:58] LABS: HEMATOCRIT 33.1 % (42.0-52.0); MCH 32.4 pg (26.0-34.0); MCHC 33.3 g/dL (28.0-37.0); MCV 97.2 fL (80.0-100.0); RBC 3.41 mil/uL (4.50-6.00); WBC 6.7 thou/uL (4.0-11.0)
[2019-01-14 10:08] LABS: CALCIUM 9.5 mg/dL (8.5-10.1); CREATININE 4.4 mg/dL (0.7-1.3); POTASSIUM 5.1 mmol/L (3.5-5.1)
[2019-01-14 10:09] LABS: INR 1.1
[2019-01-14 10:40] VITALS: BP 104/59
[2019-01-14 12:10] VITALS: BP 112/52
--- NOTE | 2019-01-14 12:25 | NUR ---
HERE FOR ALBUMIN S/P LARGE VOLUME PARACENTESIS. 12.5 LITERS REMOVED TODAY BY RADIOLOGY TEAM. 100GM ALBUMIN INFUSED OVER 1H 20 MIN, 20MIN/BOTTLE. PT TOLERATED WELL. VSS. STILL HAS QUITE A BIT OF LE EDEMA AND IS TROUBLED BY BILAT LE NEUROPATHY. USING A WALKER AT ALL TIMES NOW. ELEVATING LEGS IN BED AT NIGHT AND WEARING COMPRESSION STOCKINGS IN THE DAY. PT IS LOSING WEIGHT, NOW 174.2 POST PARACENTESIS BUT STILL WITH LE EDEMA PRESENT. DISMISSED IN STABLE CONDITION WITH FAMILY. PLANS TO RETURN 01/25.
[2019-01-15 00:06] LABS: GLYCOHEMOGLOBIN (HGB A1C) 5.6 % (4.8-5.6)
== END | disposition home or self-care (01) ==
LOC: ULTRA 09:22
PROVIDERS: Internal Medicine Gastroenterology
DX: R18.8 Other ascites (principal); Z98.890 Other specified postprocedural states; Z79.899 Other long term (current) drug therapy
CPT/HCPCS: 95000

== ENCOUNTER 2019-01-21 09:08 | Emergency (ER) | payer OTHER, BC ==
[~2019-01-21] VITALS: Ht 180.3 cm; Wt 74.8 kg
[2019-01-21 09:36] LABS: ABSOLUTE NEUTROPHILS 6.5 thou/uL (1.4-8.2); BASOPHILS 1.4 % (0.0-2.0); EOSINOPHILS 5.4 % (0.0-3.0); HEMATOCRIT 32.6 % (42.0-52.0); HEMOGLOBIN 10.8 gm/dL (14.0-18.0); LYMPHOCYTES 11.4 % (24.0-44.0); MCH 32.4 pg (26.0-34.0); MCV 98.3 fL (80.0-100.0); MONOCYTES 7.3 % (1.0-8.0); PLATELET COUNT 139 thou/uL (150-400); POLYS 74.5 % (36.0-66.0); RBC 3.32 mil/uL (4.50-6.00); WBC 8.7 thou/uL (4.0-11.0)
[2019-01-21 09:41] LABS: ANION GAP 13 mmol/L (7-16); BUN 78 mg/dL (7-18); CALCIUM 9.4 mg/dL (8.5-10.1); CHLORIDE 101 mmol/L (98-107); CO2 19 mmol/L (21-32); CREATININE 4.7 mg/dL (0.7-1.3); GLUCOSE 148 mg/dL (74-106); POTASSIUM 5.5 mmol/L (3.5-5.1); SODIUM 133 mmol/L (136-145)
[2019-01-21 09:47] LABS: INR 1.2; PROTIME 12.5 Seconds (9.3-11.4)
[2019-01-21 09:51] LABS: ALBUMIN 3.4 g/dL (3.4-5.0); SGOT 37 U/L (15-37); SGPT 21 U/L (30-65); TOTAL BILIRUBIN 1.3 mg/dL (<0.1-1.0); TOTAL PROTEIN 6.6 g/dL (6.4-8.2); TROPONIN-I <0.06 ng/mL (<0.06)
[2019-01-21 15:15] VITALS: BP 93/41
--- NOTE | 2019-01-24 08:48 | EKG ---
[place] [address] [facility] [employer] [address] ELECTROCARDIOGRAM REPORT Name: HOA OROSCODESEAN Murrieta Room #[facility] [id number] Admission: 01/21/19 Attend Phys: Discharge: 01/21/19 Date of : 41 Report #: [id number] THIS REPORT FOR: //name// [facility] ED Test Date: 2019-01-21 Test Time: 09:18:23 Pat Name: DESEAN CAMARA Department: Room: Gender: M House Admin: josé luis : 1945 Requested By: Hector Dial Order Number: [id number] MD: Jon Greene Measurements Intervals [place] Rate: 68 P: -7 AR: 136 QRS: 207 QRSD: 127 T: -2 QT: 454 QTc: 483 Interpretive Statements Atrial-sensed ventricular-paced rhythm No further analysis attempted due to paced rhythm Compared to ECG 12/07/2018 16:12:03 No significant changes Electronically Signed On 01-24-2019 8:47:50 CDT by Jon Greene [email or web address] <ELECTRONICALLY SIGNED> By: Jon Greene MD, [facility] 01/24/19 0847 7 7 Jon Greene MD, [facility] /EPI
== END 2019-01-21 12:18 | disposition home or self-care (01) ==
LOC: ER 09:08
PROVIDERS: Emergency Medicine
DX: I95.9 Hypotension, unspecified (principal); I25.2 Old myocardial infarction; Z90.49 Acquired absence of other specified parts of digestive tract; Z98.890 Other specified postprocedural states
CPT/HCPCS: 95000; 95001

== ENCOUNTER → 2019-02-04 | Outpatient (CLI) | payer OTHER, BC ==
[2019-02-04 11:13] VITALS: BP 96/61
[2019-02-04 11:31] VITALS: BP 85/61
[2019-02-04 11:42] VITALS: BP 86/56
[2019-02-04 11:48] VITALS: BP 77/52
[2019-02-04 12:10] VITALS: BP 100/52
[2019-02-04 12:16] VITALS: BP 99/49
--- NOTE | 2019-02-04 12:16 | NUR ---
IN FOR PARACENTESIS FOR ASCITES. TOTAL OF ONLY 6 LITERS REMOVED TODAY PER CAREER AND TECHNOLOGY EDUCATION TEACHER BASED ON PT'S EXPRIENCE WITH BP DROP LAST TIME HE WAS TAPPED AND >10 LITER REMOVED. PT APPEARS WEAKER TODAY. DID MAKE IT ON HIS TRIP TO [place] WITH HIS FAMILY. THEY CONTINUE TO BE QUITE SUPPORTIVE IN HIS CARE. ASKING IF PT IS DOING BETTER BECAUSE HE LASTED 2 WEEKS WITH MUCH LESS ASCITES NOTED. LET KNOW THAT PT IS NOT GOING TO GET BETTER IN GENERAL BUT SOME WEEKS MAY BE BETTER THAN OTHERS. SHE REFLECTED THAT THE LORD CAN HEAL ANYONE. PT'S BP DID DROP AGAIN TODAY FOR A BIT. GIVEN JUICE TO DRINK, CRACKERS TO EAT. BP TRENDING BACK UP ALREADY. LOWEST WAS 77/52. 2 BOTTLES ALBUMIN GIVEN (50GM) PER REPLACEMENT ORDER. SPOKE WITH TAHMINA RN WITH DR. CASTILLO TO LET HIM KNOW WE STOPPED AT 6 LITERS TODAY AND WOULD LIKE TO DISCUSS FUTURE ORDERS RELFECTING THIS SINCE PT'S BP DROPS SO MUCH. SHE WILL DISCUSS WITH DR. CASTILLO. DR. CASTILLO ABOUT
== END | disposition home or self-care (01) ==
LOC: ULTRA 10:40
DX: R18.8 Other ascites (principal); R14.0 Abdominal distension (gaseous); N18.9 Chronic kidney disease, unspecified; K74.60 Unspecified cirrhosis of liver
CPT/HCPCS: 95000

== ENCOUNTER → 2019-02-15 | Outpatient (CLI) | payer OTHER, BC ==
[2019-02-15 10:30] VITALS: BP 108/65
[2019-02-15 11:07] LABS: HEMATOCRIT 31.6 % (42.0-52.0); HEMOGLOBIN 10.4 gm/dL (14.0-18.0); MCH 32.4 pg (26.0-34.0); RBC 3.22 mil/uL (4.50-6.00); RDW 15.5 % (10.5-14.5); WBC 8.3 thou/uL (4.0-11.0)
[2019-02-15 11:15] VITALS: BP 101/63
[2019-02-15 11:18] LABS: INR 1.2; PROTIME 12.6 Seconds (9.3-11.4)
[2019-02-15 11:20] LABS: CALCIUM 10.2 mg/dL (8.5-10.1); CREATININE 6.2 mg/dL (0.7-1.3); POTASSIUM 5.7 mmol/L (3.5-5.1)
[2019-02-15 11:30] VITALS: BP 103/61
[2019-02-15 11:40] VITALS: BP 93/62
[2019-02-15 11:50] VITALS: BP 93/62
[2019-02-15 12:00] VITALS: BP 93/58
--- NOTE | 2019-02-15 15:05 | NUR ---
IN FOR LARGE VOLUME PARACENTESIS FOR CIRRHOSIS/ASCITES. PATIENT'S ABDOMEN FIRM AND SEVERELY DISTENDED. RADHA FROM US DID PARACENTESIS. 10 LITERS REMOVED. ALBUMIN 75 GMS IV GIVEN POST PARACENTESIS. PATIENT HAD PROBABLY 4-5 MORE LITERS IN ABDOMEN BUT BP DROPS BELOW 100 IF TOO MUCH REMOVED SO STOPPED AT 10 LITERS. PATIENT TOLERATED WELL. DRANK SOME LEMON JACKSON SODA AND OBSERVED FOR 30 MINUTES. DENIED DIZZINESS/INCREASED WEAKNESS. PATIENT STATED BACK PAIN RELIEVED. TO RETURN NEXT THURSDAY FOR NEXT TREATMENT. DISMISSED IN STABLE CONDITION.
== END ==
LOC: OPONC 09:57
PROVIDERS: Internal Medicine Gastroenterology
DX: K74.60 Unspecified cirrhosis of liver (principal); R18.8 Other ascites
CPT/HCPCS: 95000

== ENCOUNTER → 2019-02-22 | Outpatient (CLI) | payer OTHER, BC ==
[2019-02-22] VITALS (9 sets, daily range): BP systolic 99–120; BP diastolic 43–62
[2019-02-22 09:24] LABS: HEMATOCRIT 28.9 % (42.0-52.0); HEMOGLOBIN 9.6 gm/dL (14.0-18.0); MCH 32.1 pg (26.0-34.0); MCV 97.3 fL (80.0-100.0); RBC 2.97 mil/uL (4.50-6.00); RDW 15.2 % (10.5-14.5); WBC 7.5 thou/uL (4.0-11.0)
[2019-02-22 09:31] LABS: CALCIUM 9.7 mg/dL (8.5-10.1); POTASSIUM 5.7 mmol/L (3.5-5.1)
[2019-02-22 09:32] LABS: INR 1.2; PROTIME 12.5 Seconds (9.3-11.4)
--- NOTE | 2019-02-22 13:09 | NUR ---
IN FOR ALBUMIN REPLACEMENT POST LARGE VOLUME PARACENTESIS FOR ASCITES/CIRRHOSIS. US TECH REMOVED 10 LITERS AND PATIENT TOLERATED WELL. VITAL SIGNS STABLE THROUGHOUT PROCEDURE. ALBUMIN 75 GMS IV GIVEN AND TOLERATED WELL WITHOUT INCIDENT. SCHEDULED TO RETURN NEXT THURSDAY FOR THE SAME. AND DTR WITH PATIENT. DISMISSED IN STABLE CONDITION.
== END | disposition home or self-care (01) ==
LOC: ULTRA 08:44
PROVIDERS: Internal Medicine Gastroenterology
DX: R18.8 Other ascites (principal); N18.9 Chronic kidney disease, unspecified; Z79.899 Other long term (current) drug therapy; Z98.890 Other specified postprocedural states
CPT/HCPCS: 95000

== ENCOUNTER → 2019-03-02 | Outpatient (CLI) | payer OTHER, BC ==
[2019-03-02 13:15] VITALS: BP 118/63
[2019-03-02 14:10] VITALS: BP 106/57
[2019-03-02 14:20] VITALS: BP 108/56
[2019-03-02 14:55] VITALS: BP 108/52
--- NOTE | 2019-03-02 15:00 | NUR ---
HERE FOR FREQUENT PARACENTESIS BY ULTRASOUND WITH ALBUMIN REPLACEMENT TO FOLLOW. PT DOING REASONABLY WELL. HAS SOME BILAT LE EDEMA. DIFFICULTY WALKING. TOLERATING PARACENTESIS WELL LATELY. VSS THROUGHOUT. 9.5 LITERS REMOVED WITH 75 GM ALBUMIN REPLACED. PLANS TO RETURN ON 03/14. GOING OUT OF TOWN FOR THANKSGIVING WEEKEND. DISMISSED IN STABLE CONDITION.
== END ==
LOC: OPONC 03-01 15:28
DX: K74.69 Other cirrhosis of liver (principal); R18.8 Other ascites
CPT/HCPCS: 95000

== ENCOUNTER → 2019-03-14 | Outpatient (CLI) | payer OTHER, BC ==
[2019-03-14 11:04] VITALS: BP 102/61
[2019-03-14 11:24] LABS: HEMATOCRIT 30.3 % (42.0-52.0); MCH 31.1 pg (26.0-34.0); MCHC 32.9 g/dL (28.0-37.0); MCV 94.5 fL (80.0-100.0); RBC 3.21 mil/uL (4.50-6.00); RDW 14.2 % (10.5-14.5); WBC 7.5 thou/uL (4.0-11.0)
[2019-03-14 11:31] LABS: CALCIUM 9.9 mg/dL (8.5-10.1); CREATININE 6.2 mg/dL (0.7-1.3); POTASSIUM 5.5 mmol/L (3.5-5.1)
[2019-03-14 11:33] VITALS: BP 110/65
[2019-03-14 11:38] VITALS: BP 96/59
[2019-03-14 11:43] VITALS: BP 96/62
[2019-03-14 11:50] VITALS: BP 112/55
[2019-03-14 12:25] VITALS: BP 116/56
--- NOTE | 2019-03-14 12:41 | NUR ---
PT HERE FOR PARACENTESIS WITH ULTRASOUND FOLLOWED BY ALBUMIN. 7.4 LITERS REMOVED, 50GM ALBUMIN REPLACED. PT TOLERATED PROCEDURE WELL WITH ONLY SLIGHT DIP IN BP AND QUICK RECOVERY. PT APPEARS DRY TO START. DAUGHTER STATES HE IS NOT EATING WELL AND ACKNOWLEDGES A DECLINE IN HIS STATUS. STATES THEY HAVE SPOKEN WITH DR. CASTILLO ABOUT THIS. SPOKE PRIVATELY WITH DAUGHTER ABOUT HIS DECLINE, OFFERED EMOTIONAL SUPPORT. PT DISMISSED IN STABLE CONDITION. SCHEDULED TO RETURN AGAIN ON 03/24.
== END | disposition home or self-care (01) ==
LOC: OPONC 10:33 → ULTRA 10:33
PROVIDERS: Internal Medicine Gastroenterology
DX: R18.8 Other ascites (principal); R14.0 Abdominal distension (gaseous); N18.9 Chronic kidney disease, unspecified; K74.60 Unspecified cirrhosis of liver; Z79.899 Other long term (current) drug therapy; Z98.890 Other specified postprocedural states
CPT/HCPCS: 95000

== ENCOUNTER → 2019-03-24 | Outpatient (CLI) | payer OTHER, BC ==
[2019-03-24 10:20] VITALS: BP 95/69
[2019-03-24 10:45] VITALS: BP 104/65
[2019-03-24 10:55] VITALS: BP 109/62
[2019-03-24 11:05] VITALS: BP 103/61
--- NOTE | 2019-03-24 11:18 | NUR ---
IN FOR LARGE VOLUME PARACENTESIS WITH ALBUMIN REPLACEMENT. US TECH REMOVED 6.6L ASCITIC FLUID. VITAL SIGNS STABLE THROUGHOUT. 2 BOTTLES OF ALBUMIN GIVEN PER STANDING ORDER IF REMOVED BETWEEN 6-8 LITERS GIVE 50 GMS. TOLERATED INFUSION WELL. REMOVED IV AND DISMISSED IN STBALE CONDITION.
== END ==
LOC: OPONC 10:00
DX: K70.31 Alcoholic cirrhosis of liver with ascites (principal)
CPT/HCPCS: 95000

== ENCOUNTER → 2019-04-07 | Outpatient (CLI) | payer OTHER, BC ==
[2019-04-07 10:50] VITALS: BP 104/58
[2019-04-07 11:30] VITALS: BP 106/53
[2019-04-07 11:32] LABS: INR 1.3; PROTIME 13.2 Seconds (9.3-11.4)
[2019-04-07 12:00] VITALS: BP 92/57
[2019-04-07 12:20] VITALS: BP 106/58
[2019-04-07 13:05] VITALS: BP 124/61
--- NOTE | 2019-04-07 13:40 | NUR ---
IN FOR WEEKLY PROLASTIN C INFUSION. STATED FEELING WELL. IV STARTED AND PROLASTIN INFUSED WITHOUT DIFFICULTY. TOLERATED INFUSION WITHOUT INCIDENT. REMOVED IV AND DISMISSED IN GOOD CONDITION.
--- NOTE | 2019-04-07 15:42 | NUR ---
IN FOR LARGE VOLUME PARACENTESIS AND ALBUMIN REPLACEMENT. PATIENT STATED FELL IN THE BATH TUB YESTERDAY. SMALL ABRASION NOTED TO RT UPPER HEAD. NO BLEEDING. PATIENT'S BROTHER CAME AND HELPED HIM UP. PARACENTESIS DONE AND 8.3 LITERS REMOVED. 75 GM ALBUMIN INFUSED IV PER STANDING ORDER. TOLERATED WELL. BP REMAINED STABLE THROUGHOUT TREATMENT. FAMILY AT BEDSIDE. REMOVED IV AND DISMISSED IN WEAK BUT STABLE CONDITION.
== END ==
LOC: OPONC 10:01
PROVIDERS: Internal Medicine Gastroenterology
DX: K74.69 Other cirrhosis of liver (principal); R18.8 Other ascites
CPT/HCPCS: 95000